=== PATIENT | female | born 1955 | race Caucasian/White ===

== ENCOUNTER → 2017-09-22 11:14 | Outpatient (CLI) | payer OTHER, SELFPAY ==
[2017-09-22 14:28] LABS: Absolute Lymphocyte Count 1.75 X10^3/ul (0.83-4.51); Absolute Neutrophil Count 2.9 X10^3/uL (2.0-7.7); Basophil# 0.02 X10^3/uL; Basophil% 0.4 % (0-1); Eosinophils% 3.8 % (0-5); Hematocrit 43.2 % (37-47); Lymphocyte # 1.75 X10^3/ul (4.0); Lymphocyte % 33.1 % (19-41); Mean Corp Hgb Conc 32.4 g/gl (32-36); Mean Corpuscular Hgb 29.4 pg (27.0-32.0); Mean Corpuscular Volume 90.8 fL (81-99); Monocyte% 7.6 % (0-10); Neutrophil # 2.91 X10^3/uL (2.7-7.7); Neutrophil % 54.9 % (47-70); Platelet Count 286 K/mm3 (150-450); RBC Distribution Width CV 13.4 % (11.6-14.6); RBC Distribution Width SD 44.1 fl (35.1-43.9); Red Blood Count 4.76 M/mm3 (4.2-5.4); White Blood Count 5.3 K/mm3 (4.4-11.0)
[2017-09-22 14:39] LABS: ALB/GLOB Ratio 0.9 RATIO (0.9-2.4); AST(SGOT) 34 U/L (15-37); Alanine Aminotransfer ALT/SGPT 23 U/L (13-56); Albumin, Serum 3.7 g/dL (3.2-5.0); Alkaline Phosphatase 89 U/L (45-117); Anion Gap 8 (5-15); BUN 26 mg/dL (7-18); BUN/Creat Ratio 23.9 RATIO (10-20); Chloride 104 mmol/L (98-107); Cholesterol 196 mg/dL (200); Creatinine, Serum 1.09 mg/dL (0.55-1.02); EST Glomerular Filtration Rate 54 mL/min (>60); Est Glom Filt Rate - Afr Amer 65 mL/min (>60); Globulin 4.3 g/dL (2.2-4.2); Glucose 76 mg/dL (74-106); High Density Lipoprotein 53 mg/dL; POSITIVE COUNT NO; POSITIVE DIFFERENTIAL NO; POSITIVE MORPHOLOGY NO; Sodium Level 140 mmol/L (136-145); Triglycerides 101 mg/dL; Very Low Density Lipoprotein 20 mg/dL (5-40)
[2017-09-22 14:43] LABS: Hemoglobin A1c 5.7 % (4.2-6.3)
[2017-09-22 14:54] LABS: Microalbumin,Random Urine 5.6 mg/L (NO RANGE EST.); Microalbumin:Creatinine Ratio 6.8 mg/g CRE (<30 mg/g CRE)
== END ==
PROVIDERS: Family Provider Family Medicine; PCP Family Medicine; Visit Provider Family Medicine
DX: R73.02 Impaired glucose tolerance (oral) (principal); I10 Essential (primary) hypertension
CPT/HCPCS: 36415; 80053; 80061; 82043; 82570; 83036; 85025

== ENCOUNTER → 2018-01-30 08:42 | Outpatient (CLI) | payer OTHER, SELFPAY ==
--- NOTE | 2018-01-30 08:47 | BI_ITS ---
MAMMOGRAPHY - BILATERAL SCREENING REASON FOR EXAM: Female, 62 years old. Routine annual screening examination. PERTINENT HISTORY: Non-contributory. TECHNIQUE: Digital bilateral breast adriana (3D mammographic acquisition) in the CC and MLO projections. 2-D mediolateral oblique (MLO) and craniocaudad (CC) views of both breasts were obtained. CAD: Full Field Digital Mammography with Computer Added Detection was performed. COMPARISON: Comparison is made with prior study dated January 28, 2017 and December 26, 2015. FINDINGS: Breast Composition: The breasts are almost entirely fatty. There are no dominant masses or suspicious calcifications. No other significant abnormalities are identified. There has been no significant change since the prior study. BI/SCREENING MAMM (CAD), BILAT IMPRESSION: Stable bilateral screening mammogram. Yearly follow-up mammogram recommended. (A) ASSESSMENT CATEGORY: BIRADS Category 1: Negative. A letter regarding these results will be sent to the patient by the facility within 30 days. Approximately 10% of breast cancers are not detected by mammography. A normal mammogram should not delay biopsy of a clinically suspicious abnormality. [id number] Electronically Signed: Adebayo Moon MD at 10:09 EDT Tel [phone], Service support ,
== END ==
PROVIDERS: Family Provider Family Medicine; PCP Family Medicine; Visit Provider Family Medicine
DX: Z12.31 Encounter for screening mammogram for malignant neoplasm of breast (principal)
CPT/HCPCS: 77063; 77067

== ENCOUNTER → 2018-09-06 | Outpatient (CLI) | payer OTHER, SELFPAY ==
[2018-09-06 13:22] LABS: Microalbumin,Random Urine < 5.0 mg/L (NO RANGE EST.)
[2018-09-06 13:33] LABS: ALB/GLOB Ratio 0.9 RATIO (0.9-2.4); AST(SGOT) 39 U/L (15-37); Alanine Aminotransfer ALT/SGPT 30 U/L (13-56); Albumin, Serum 3.8 g/dL (3.2-5.0); Alkaline Phosphatase 89 U/L (45-117); Anion Gap 10 (5-15); BUN 19 mg/dL (7-18); BUN/Creat Ratio 19.8 RATIO (10-20); Calcium,Total 9.6 mg/dL (8.5-10.1); Chloride 103 mmol/L (98-107); Cholesterol 201 mg/dL (200); Creatinine, Serum 0.96 mg/dL (0.55-1.02); EST Glomerular Filtration Rate 62 mL/min (>60); Est Glom Filt Rate - Afr Amer 75 mL/min (>60); Globulin 4.2 g/dL (2.2-4.2); Glucose 77 mg/dL (74-106); High Density Lipoprotein 50 mg/dL; Sodium Level 141 mmol/L (136-145); Triglycerides 126 mg/dL; Very Low Density Lipoprotein 25 mg/dL (5-40)
== END | disposition home or self-care (01) ==
LOC: MFPLAB 09:59
PROVIDERS: Family Provider Family Medicine; PCP Family Medicine; Referring Provider Family Medicine; Visit Provider Family Medicine
DX: I10 Essential (primary) hypertension (principal)
CPT/HCPCS: 36415; 80053; 80061; 82043; 82570

== ENCOUNTER → 2019-01-23 13:57 | Outpatient (CLI) | payer OTHER, SELFPAY ==
[2019-01-26 16:05] LABS: HPV Reflexed? NOT INDICATED
== END ==
PROVIDERS: Family Provider Family Medicine; PCP Family Medicine; Referring Provider Nurse Practitioner Adult Health; Visit Provider Nurse Practitioner Adult Health
DX: Z01.419 Encounter for gynecological examination (general) (routine) without abnormal findings (principal)
CPT/HCPCS: 88175; G0145

== ENCOUNTER → 2019-02-13 08:42 | Outpatient (CLI) | payer OTHER, SELFPAY ==
--- NOTE | 2019-02-13 08:45 | BI_ITS ---
MAMMOGRAPHY - BILATERAL SCREENING REASON FOR EXAM: Female, 63 years old. Routine annual screening examination. PERTINENT HISTORY: Non-contributory. TECHNIQUE: Digital bilateral breast cely (3D mammographic acquisition) in the CC and MLO projections. 2-D mediolateral oblique (MLO) and craniocaudad (CC) views of both breasts were obtained. CAD: Full Field Digital Mammography with Computer Added Detection was performed. COMPARISON: Comparison is made with prior study dated January 30, 2018 and January 28, 2017. FINDINGS: Breast Composition: The breasts are almost entirely fatty. There are no dominant masses or suspicious calcifications. Stable small benign-appearing bilateral axillary lymph nodes. No other significant abnormalities are identified. There has been no significant change since the prior study. BI/SCREEN MAMM (CAD) W/CELY BILAT IMPRESSION: Stable bilateral screening mammogram. Yearly follow-up mammogram recommended. (A) ASSESSMENT CATEGORY: BIRADS Category 2: Benign. A letter regarding these results will be sent to the patient by the facility within 30 days. Approximately 10% of breast cancers are not detected by mammography. A normal mammogram should not delay biopsy of a clinically suspicious abnormality. [id number] Electronically Signed: Adebayo Moon, at 9:43 EST , Service support ,
== END ==
PROVIDERS: Family Provider Family Medicine; PCP Family Medicine; Referring Provider Nurse Practitioner Adult Health; Visit Provider Nurse Practitioner Adult Health
DX: Z12.31 Encounter for screening mammogram for malignant neoplasm of breast (principal)
CPT/HCPCS: 77063; 77067

== ENCOUNTER → 2019-10-01 11:55 | Outpatient (CLI) | payer OTHER, SELFPAY ==
[2019-10-01 16:15] LABS: ALB/GLOB Ratio 0.8 RATIO (0.9-2.4); AST(SGOT) 39 U/L (15-37); Alanine Aminotransfer ALT/SGPT 33 U/L (13-56); Albumin, Serum 3.7 g/dL (3.2-5.0); Alkaline Phosphatase 86 U/L (45-117); Anion Gap 6 (5-15); BUN 20 mg/dL (7-18); BUN/Creat Ratio 22.5 RATIO (10-20); Calcium,Total 9.2 mg/dL (8.5-10.1); Chloride 105 mmol/L (98-107); Creatinine, Serum 0.89 mg/dL (0.55-1.02); EST Glomerular Filtration Rate 68 mL/min (>60); Est Glom Filt Rate - Afr Amer 82 mL/min (>60); Globulin 4.5 g/dL (2.2-4.2); Glucose 118 mg/dL (74-106); Potassium 3.6 mmol/L (3.5-5.1); Protein, Total 8.2 g/dL (6.4-8.2); Sodium Level 140 mmol/L (136-145)
[2019-10-01 16:35] LABS: Microalbumin,Random Urine 5.4 mg/L (NO RANGE EST.)
[2019-10-01 17:14] LABS: Hemoglobin A1c 5.7 % (3.8-5.6)
== END ==
PROVIDERS: PCP Family Medicine; Visit Provider Family Medicine
DX: R73.02 Impaired glucose tolerance (oral) (principal)
CPT/HCPCS: 36415; 80053; 82043; 82570; 83036

== ENCOUNTER → 2019-11-28 11:40 | Outpatient (CLI) | payer MEDICARE, SELFPAY ==
--- NOTE | 2019-11-28 11:43 | RAD_ITS ---
STUDY: X-RAY - LEFT HAND, ATTENTION FOURTH FINGER REASON FOR EXAM: Female, 64 years old. Left 4th digit pain at mcp joint x 1 month TECHNIQUE: 3 view(s) of the finger were obtained. COMPARISON: None. FINDINGS: There is an acute, avulsion fracture of the proximal medial corner of the proximal phalanx of the fourth digit with soft tissue swelling. This is seen on the AP and oblique images. There is a minimal amount of soft tissue swelling. No other demonstrated fracture. Mild PIP and DIP joint arthrosis. RAD/Finger(s) Min 2 Views IMPRESSION: Acute minimally displaced avulsion fracture of the proximal medial corner of the fourth digit of the left hand with soft tissue swelling Degenerative arthrosis Electronically Signed: Ori Metzger MD at 12:00 EDT , Service support ,
== END ==
PROVIDERS: PCP Family Medicine; Referring Provider Nurse Practitioner Adult Health; Visit Provider Nurse Practitioner Adult Health
DX: M79.645 Pain in left finger(s) (principal)
CPT/HCPCS: 73140

== ENCOUNTER → 2020-02-15 08:42 | Outpatient (CLI) | payer MEDICARE, SELFPAY ==
--- NOTE | 2020-02-15 08:43 | BI_ITS ---
MAMMOGRAPHY - BILATERAL SCREENING REASON FOR EXAM: Female, 64 years old. Routine annual screening examination. PERTINENT HISTORY: Non-contributory. TECHNIQUE: Digital bilateral breast cely (3D mammographic acquisition) in the CC and MLO projections. 2-D mediolateral oblique (MLO) and craniocaudad (CC) views of both breasts were obtained. CAD: Full Field Digital Mammography with Computer Added Detection was performed. COMPARISON: Comparison is made with prior study dated 02/13/2019 and 01/30/2018. FINDINGS: Breast Composition: The breasts are almost entirely fatty. There are no dominant masses or suspicious calcifications. No other significant abnormalities are identified. There has been no significant change since the prior study. BI/SCREEN MAMM (CAD) W/CELY BILAT IMPRESSION: Stable bilateral screening mammogram. Yearly follow-up mammogram recommended. (A) ASSESSMENT CATEGORY: BIRADS Category 1: Negative. A letter regarding these results will be sent to the patient by the facility within 30 days. Approximately 10% of breast cancers are not detected by mammography. A normal mammogram should not delay biopsy of a clinically suspicious abnormality. [id number] Electronically Signed: Adebayo Moon, at 10:02 EST , Service support ,
== END ==
PROVIDERS: PCP Family Medicine; Referring Provider Nurse Practitioner Adult Health; Visit Provider Nurse Practitioner Adult Health
DX: Z12.31 Encounter for screening mammogram for malignant neoplasm of breast (principal)
CPT/HCPCS: 77063; 77067

== ENCOUNTER → 2020-09-18 08:40 | Outpatient (CLI) | payer MEDICARE, SELFPAY ==
[2020-09-18 10:26] LABS: Hemoglobin A1c 5.8 % (3.8-5.6)
[2020-09-18 10:29] LABS: Microalbumin,Random Urine 11.4 mg/L (NO RANGE EST.); Microalbumin:Creatinine Ratio 6.9 mg/g CRE (<30 mg/g CRE)
[2020-09-18 10:45] LABS: ALB/GLOB Ratio 0.9 RATIO (0.9-2.4); AST(SGOT) 54 U/L (15-37); Alanine Aminotransfer ALT/SGPT 42 U/L (13-56); Albumin, Serum 3.6 g/dL (3.2-5.0); Alkaline Phosphatase 74 U/L (45-117); Anion Gap 8 (5-15); BUN 26 mg/dL (7-18); BUN/Creat Ratio 28.4 RATIO (10-20); Calcium,Total 8.6 mg/dL (8.5-10.1); Chloride 107 mmol/L (98-107); Cholesterol 196 mg/dL (200); Creatinine, Serum 0.91 mg/dL (0.55-1.02); EST Glomerular Filtration Rate 65 mL/min (>60); Est Glom Filt Rate - Afr Amer 79 mL/min (>60); Globulin 4.1 g/dL (2.2-4.2); Glucose 128 mg/dL (74-106); High Density Lipoprotein 39 mg/dL; Potassium 3.8 mmol/L (3.5-5.1); Protein, Total 7.7 g/dL (6.4-8.2); Sodium Level 139 mmol/L (136-145); Thyroid Stim Hormone (TSH) 7.08 uIU/mL (0.358-3.74); Triglycerides 166 mg/dL; Very Low Density Lipoprotein 33 mg/dL (5-40)
[2020-09-22 10:27] LABS: T4 Total, Thyroxin 8.4 ug/dL (4.8-13.9)
[2020-09-24 08:35] LABS: T4 Free Direct 0.88 ng/dL (0.76-1.46)
== END ==
PROVIDERS: PCP Family Medicine; Referring Provider Family Medicine; Visit Provider Family Medicine
DX: E03.9 Hypothyroidism, unspecified (principal)
CPT/HCPCS: 36415; 80053; 80061; 82043; 82570; 83036; 84436; 84439; 84443

== ENCOUNTER → 2020-09-18 10:17 | Outpatient (CLI) | payer MEDICARE, SELFPAY ==
--- NOTE | 2020-09-18 10:26 | BD_ITS ---
STUDY: DUAL ENERGY X-RAY ABSORPTIOMETRY / DXA REASON FOR EXAM: Female, 65 years old. Z780. The patient is postmenopausal. TECHNIQUE: Bone Mineral Density (BMD) measurements of lumbar spine and bilateral hips were obtained. COMPARISON: Comparison is made with prior study dated 12/30/2015. FINDINGS: Lumbar Spine (L1-L4): g/cm2 (1.234) / T-score (0.5) / Z-score (2.1) Findings are suggestive of normal bone density with a low fracture risk. Left Femur Total: g/cm2 (0.874) / T-score (-1.1) / Z-score (0.2) Left Femoral Neck: g/cm2 (0.809) / T-score (-1.6) / Z-score (-0.1) Right Femur Total: g/cm2 (0.790) / T-score (-1.7) / Z-score (-0.5) Right Femoral Neck: g/cm2 (0.658) / T-score (-2.7) / Z-score (-1.2) The T-Scores on the most recent prior examination were: Lumbar Spine (L1-L4): There has been worsening of bone density since the previous examination. Left Femur Total: which represents a worsening of 12%. Right Femur Total: which represents a worsening of 60.4%. BD/Dexa Bone Density Study IMPRESSION: The patient is considered osteoporotic as outlined below according to World Matthew Organization (WHO) criteria with a high fracture risk. There has been worsening of bone density since the previous examination. Reference Information: The T-score is the number of standard deviations above or below the standard which is normal for young adults at their peak bone mineral density. The World Health Organization (WHO) interprets the T-scores as follows: Above -1 Normal bone density Between -1 and -2.5 Osteopenia Equal to / or below -2.5 Osteoporosis As a practical clinical guideline, osteopenia may be graded as follows: Mild -1 through -1.5 Moderate -1.6 through -2.0 Severe -2.1 through -2.4 The Z-score is the number of standard deviations above or below age-matched controls. A Z-score of less than -1.5 would be considered abnormal. References: 1. NIH Osteoporosis and Related Bone Diseases www osteo.org 2. International Society for Clinical Densitometry www iscd.org 3. National Osteoporosis Foundation www nof.org Electronically Signed: Adebayo Moon MD at 12:21 EDT , Service support ,
== END ==
PROVIDERS: PCP Family Medicine; Referring Provider Family Medicine; Visit Provider Family Medicine
DX: M81.0 Age-related osteoporosis without current pathological fracture (principal); I10 Essential (primary) hypertension; E03.9 Hypothyroidism, unspecified; R73.02 Impaired glucose tolerance (oral); E66.01 Morbid (severe) obesity due to excess calories; Z78.0 Asymptomatic menopausal state
CPT/HCPCS: 36415; 77080; 80053; 80061; 82043; 82570; 83036; 84443

== ENCOUNTER → 2020-11-12 15:41 | Outpatient (CLI) | payer MEDICARE, SELFPAY ==
[2020-11-12 18:08] LABS: Vitamin D,25 Hydroxy 42.2 ng/mL
[2020-11-12 18:14] LABS: Magnesium 1.8 mg/dL (1.6-2.6); T4 Free Direct 1.13 ng/dL (0.76-1.46); Thyroid Stim Hormone (TSH) 1.88 uIU/mL (0.358-3.74)
[2020-11-13 08:04] LABS: PTHIN 43.2 pg/mL (18.4-80.1)
== END ==
PROVIDERS: PCP Family Medicine; Referring Provider Family Medicine; Visit Provider Family Medicine
DX: E03.9 Hypothyroidism, unspecified (principal); M85.80 Other specified disorders of bone density and structure, unspecified site
CPT/HCPCS: 36415; 82306; 83735; 83970; 84439; 84443

== ENCOUNTER → 2021-03-17 11:10 | Outpatient (CLI) | payer MEDICARE, SELFPAY ==
[2021-03-17 13:06] LABS: Hemoglobin A1c 5.7 % (3.8-5.6)
[2021-03-17 13:34] LABS: Thyroid Stim Hormone (TSH) 2.87 uIU/mL (0.358-3.74)
== END ==
PROVIDERS: PCP Family Medicine; Referring Provider Family Medicine; Visit Provider Registered Nurse
DX: E03.9 Hypothyroidism, unspecified (principal); R73.03 Prediabetes
CPT/HCPCS: 36415; 83036; 84443

== ENCOUNTER → 2021-04-09 | Outpatient (CLI) | payer MEDICARE, SELFPAY | END | disposition home or self-care (01) | PROVIDERS: PCP Family Medicine; Visit Provider Family Medicine | DX: U07.1 COVID-19 (principal) | CPT/HCPCS: 87635; U0003; U0005 ==

== ENCOUNTER 2021-05-27 15:07 | Outpatient (CLI) | payer MEDICARE, SELFPAY ==
[2021-06-25 09:03] LABS: HPV Reflexed? YES, CHARGE PATIENT
== END 2021-05-27 23:59 | disposition home or self-care (01) ==
LOC: LABSPEC 15:11
PROVIDERS: Nurse Practitioner Family; PCP Family Medicine; Visit Provider Family Medicine
DX: N95.0 Postmenopausal bleeding (principal)
CPT/HCPCS: 87624; 88175; G0145

== ENCOUNTER 2021-05-29 11:31 | Outpatient (CLI) | payer MEDICARE, SELFPAY ==
--- NOTE | 2021-05-29 11:43 | US_ITS ---
STUDY: ULTRASOUND OF THE FEMALE PELVIS - COMPLETE REASON FOR EXAM: Female, 66 years old. POSTMENOPAUSAL BLEEDING LMP: Patient is postmenopausal. TECHNIQUE: Transabdominal and Transvaginal TECHNICAL QUALITY: Adequate. COMPARISON: None. FINDINGS: The uterus is anteverted and is in a midline position. The uterus measures 8.3 cm x 4.6 cm x 3.5 cm. There is a Nabothian cyst of the cervix. The endometrium is thickened and measures 13.5 mm in thickness, and is hyperechoic. There is no demonstrated endometrial mass. Heterogeneous echotexture of the myometrium although no focal fibroid is seen at this time. I.U.D. - The patient does not have an I.U.D. The right ovary is non-visualized. The left ovary is non-visualized. There is no fluid in the cul-de-sac. The pre void volume of the bladder was 51.5 ml. US/Pelvic (Non ) IMPRESSION: The endometrium is thickened. Heterogeneous echotexture of the uterine myometrium. Electronically Signed: Adebayo Moon MD at 13:41 EST ,
--- NOTE | 2021-05-29 11:43 | US_ITS ---
STUDY: ULTRASOUND OF THE FEMALE PELVIS - COMPLETE REASON FOR EXAM: Female, 66 years old. POSTMENOPAUSAL BLEEDING LMP: Patient is postmenopausal. TECHNIQUE: Transabdominal and Transvaginal TECHNICAL QUALITY: Adequate. COMPARISON: None. FINDINGS: The uterus is anteverted and is in a midline position. The uterus measures 8.3 cm x 4.6 cm x 3.5 cm. There is a Nabothian cyst of the cervix. The endometrium is thickened and measures 13.5 mm in thickness, and is hyperechoic. There is no demonstrated endometrial mass. Heterogeneous echotexture of the myometrium although no focal fibroid is seen at this time. I.U.D. - The patient does not have an I.U.D. The right ovary is non-visualized. The left ovary is non-visualized. There is no fluid in the cul-de-sac. The pre void volume of the bladder was 51.5 ml. US/Transvaginal Non- IMPRESSION: The endometrium is thickened. Heterogeneous echotexture of the uterine myometrium. Electronically Signed: Adebayo Moon MD at 13:41 EST ,
== END 2021-05-29 23:59 | disposition home or self-care (01) ==
LOC: US 11:37
PROVIDERS: PCP Family Medicine; Referring Provider Nurse Practitioner Family; Visit Provider Nurse Practitioner Family
DX: N95.0 Postmenopausal bleeding (principal)
CPT/HCPCS: 76830; 76856

== ENCOUNTER 2021-06-08 14:27 | Outpatient (CLI) | payer MEDICARE, SELFPAY ==
--- NOTE | 2021-06-08 | IMM_PTH ---
PATIENT: LILLY LIRA LOC: [facility] U#:[id number] AGE/SX: 66/F ROOM: RE06/08/[address]: Dr. Alexander Daniel MD : 1955 BED: DIS: 06/08/2021 SPEC #: [id number] RECD: 06/10/21 14:48 STATUS: NESS REQ #: [id number] GREGORY: 06/08/21 00:[address]: Alexander Daniel DEPT: IMMUNOHISTOCHEMISTRY RECD BY: Tonya Lozoya ENTERED: 06/10/21 14:49 SP TYPE: IMMUNO OTHR DR: Dr. Eddy Lira MD Tissues: Endometrium, NOS Procedures: MSH2 (add) MLH-1 (add) MSH6 (add) Anti-PMS2 (add) KI-67 (add) P53 (add) HER-2-MIKHAIL (initial) PHYSICIAN & INSTITUTION [address] [address] SPECIMEN INFORMATION: Tissue Source: Endometrial biopsy Clinical Info: [facility] Specimen Number: [id number] CPT code: 39783, 76892 x6 METHODOLOGY: Deparaffinized sections of prefer/formalin-fixed tissue or PAP/DQ stained slides are incubated with monoclonal/polyclonal antibodies/oligonucleotide probes. Localization is made via biotin free immunoperoxidase method. Appropriate controls are performed and reacted as expected. Results on target cell population are indicated in the following table: RESULTS: ANTIBODY / CLONE RESULT Ki-67 (30-9) positive, moderate P53 (DO-7) positive, rare cells MLH-1 (M1) positive MSH2 (25D12) positive MSH6 (44) positive PMS2 (SRY2061) positive Her-2neu (CB11) negative (0) These tests were developed and their performance characteristics determined by [facility]. They may not have been cleared or approved by the U.S. Food and Drug Administration. The FDA has determined that such clearance or approval is not necessary. The above immunohistochemical/dualISH markers are ordered and reviewed by the Pathologist. INTERPRETATION: Endometrial biopsy: Endometrial adenocarcinoma, endometrioid type. Result of Microsatellite Instability Study: Negative (no loss of mismatch protein; no microsatellite instability detected). SJ:pastor 06/11/2021
--- NOTE | 2021-06-08 | EMB_PTH ---
PATIENT: LILLY LIRA LOC: [facility] U#:[id number] AGE/SX: 66/F ROOM: RE06/08/[address]: Dr. Alexander Daniel MD : 1955 BED: DIS: 06/08/2021 SPEC #: [id number] RECD: 06/08/21 14:50 STATUS: NESS REJenny #: [id number] GREGORY: 06/08/21 00:[address]: Alexander Daniel DEPT: SURGICAL PATHOLOGY RECD BY: Mau Sanches ENTERED: 06/09/21 10:48 SP TYPE: ENDOM BX/C JAVI DR: Dr. Eddy Lira MD Tissues: Endometrium, NOS Procedures: Surgery Specimen Level IV HEADER OPERATION: Endometrial biopsy PRE-OP DIAGNOSIS: PMB TISSUE SUBMITTED: Endometrial biopsy MICROSCOPIC DIAGNOSIS Endometrial biopsy: Well-differentiated endometrial adenocarcinoma, endometrioid type, FIGO I, arising in the background of complex hyperplasia with atypia. SJ:pastor 06/10/2021 COMMENT Immunohistochemistry ([id number]) for microsatellite instability (mismatch repair of protein) will be performed and the results will be reported separately. Case has been reviewed in consultation with Dr. Fitch who concurs with the above diagnosis. IDC:AM MICROSCOPIC DESCRIPTION Slides are reviewed. GROSS DESCRIPTION Received in fixative is one container labeled with the patient's name and designated endometrial biopsy. The specimen consists of multiple fragments of hemorrhagic soft tissue that in aggregate measure 3 x 2.5 x 0.3 cm. The specimen is totally submitted in one cassette. / DENISE:pastor 06/09/2021 TC:0 CPT: 37476
== END 2021-06-08 23:59 | disposition home or self-care (01) ==
LOC: LABSPEC 14:35
PROVIDERS: PCP Family Medicine; Visit Provider Obstetrics & Gynecology
DX: N95.0 Postmenopausal bleeding (principal)
CPT/HCPCS: 88305; 88341; 88342

== ENCOUNTER → 2021-09-08 | Outpatient (CLI) | payer MEDICARE, SELFPAY ==
[2021-09-08 15:26] LABS: ALB/GLOB Ratio 0.9 RATIO (0.9-2.4); AST(SGOT) 42 U/L (15-37); Alanine Aminotransfer ALT/SGPT 33 U/L (13-56); Albumin, Serum 3.5 g/dL (3.2-5.0); Alkaline Phosphatase 57 U/L (45-117); Anion Gap 8 (5-15); BUN 21 mg/dL (7-18); BUN/Creat Ratio 22.1 RATIO (10-20); Calcium,Total 8.8 mg/dL (8.5-10.1); Chloride 107 mmol/L (98-107); Creatinine, Serum 0.95 mg/dL (0.55-1.02); EST Glomerular Filtration Rate 62 mL/min (>60); Est Glom Filt Rate - Afr Amer 75 mL/min (>60); Globulin 3.8 g/dL (2.2-4.2); Glucose 86 mg/dL (74-106); Protein, Total 7.3 g/dL (6.4-8.2); Sodium Level 140 mmol/L (136-145); T4 Free Direct 1.15 ng/dL (0.76-1.46); Thyroid Stim Hormone (TSH) 3.87 uIU/mL (0.358-3.74)
== END | disposition home or self-care (01) ==
LOC: MFPLAB 12:09
PROVIDERS: PCP Family Medicine; Visit Provider Family Medicine
DX: E03.9 Hypothyroidism, unspecified (principal); I10 Essential (primary) hypertension
CPT/HCPCS: 36415; 80053; 84439; 84443

== ENCOUNTER → 2021-10-26 | Outpatient (CLI) | payer MEDICARE, SELFPAY ==
[2021-10-26 16:02] LABS: T4 Free Direct 1.11 ng/dL (0.76-1.46); T4 Total, Thyroxin 10.4 ug/dL (4.8-13.9); Thyroid Stim Hormone (TSH) 1.29 uIU/mL (0.358-3.74)
== END | disposition home or self-care (01) ==
LOC: MFPLAB 11:31
PROVIDERS: PCP Family Medicine; Visit Provider Family Medicine
DX: E03.9 Hypothyroidism, unspecified (principal)
CPT/HCPCS: 36415; 84436; 84439; 84443

== ENCOUNTER → 2021-11-27 | Outpatient (CLI) | payer MEDICARE, SELFPAY ==
--- NOTE | 2021-11-27 15:35 | RAD_ITS ---
STUDY: X-RAY CHEST REASON FOR EXAM: Female, 66 years old. COUGH TECHNIQUE: PA and lateral views of the chest. COMPARISON: None. FINDINGS: The lungs are clear and expanded. There is no demonstrated pleural abnormality. Normal size heart. Normal mediastinum and elizabeth. Normal visualized pulmonary arteries. Normal visualized aortic arch and descending thoracic aorta. Normal visualized thoracic spine. Normal visualized ribs, clavicles, and shoulders. There is no demonstrated abnormality of the visualized soft tissue structures of the upper abdomen. RAD/Chest PA and Lateral IMPRESSION: Normal x-ray examination of the chest. Electronically Signed: Brian Moore MD at 16:50 EDT ,
== END | disposition home or self-care (01) ==
LOC: MTRAD 15:34
PROVIDERS: PCP Family Medicine; Referring Provider Family Medicine; Visit Provider Family Medicine
DX: R05.9 Cough, unspecified (principal)
CPT/HCPCS: 71046

== ENCOUNTER → 2022-06-08 | Outpatient (CLI) | payer MEDICARE, SELFPAY ==
--- NOTE | 2022-06-08 14:58 | BI_ITS ---
MAMMOGRAPHY - BILATERAL SCREENING REASON FOR EXAM: Female, 67 years old. Routine annual screening examination. PERTINENT HISTORY: Non-contributory. TECHNIQUE: Digital bilateral breast cely (3D mammographic acquisition) in the CC and MLO projections. 2-D mediolateral oblique (MLO) and craniocaudad (CC) views of both breasts were obtained. CAD: Full Field Digital Mammography with Computer Added Detection was performed. COMPARISON: Comparison is made with prior study dated 02/15/2020 and 02/13/2019. FINDINGS: Breast Composition: The breasts are almost entirely fatty. There are no dominant masses or suspicious calcifications. No other significant abnormalities are identified. There has been no significant change since the prior study. BI/SCRN MAMM (CAD)W/CELY BILAT IMPRESSION: Stable bilateral screening mammogram. Yearly follow-up mammogram recommended. (A) ASSESSMENT CATEGORY: BIRADS Category 1: Negative. A letter regarding these results will be sent to the patient by the facility within 30 days. Approximately 10% of breast cancers are not detected by mammography. A normal mammogram should not delay biopsy of a clinically suspicious abnormality. [id number] Electronically Signed: Adebayo Moon MD at 15:41 EST ,
== END | disposition home or self-care (01) ==
LOC: OPBI 14:55
PROVIDERS: PCP Family Medicine; Visit Provider Obstetrics & Gynecology
DX: Z12.31 Encounter for screening mammogram for malignant neoplasm of breast (principal)
CPT/HCPCS: 77063; 77067

== ENCOUNTER → 2022-09-07 | Outpatient (CLI) | payer MEDICARE, SELFPAY ==
[2022-09-07 18:00] LABS: Vitamin D,25 Hydroxy 42.6 ng/mL
[2022-09-07 18:20] LABS: ALB/GLOB Ratio 0.7 RATIO (0.9-2.4); AST(SGOT) 39 U/L (15-37); Alanine Aminotransfer ALT/SGPT 30 U/L (13-56); Albumin, Serum 3.5 g/dL (3.2-5.0); Alkaline Phosphatase 65 U/L (45-117); Anion Gap 8 (5-15); BUN 20 mg/dL (7-18); BUN/Creat Ratio 20.3 RATIO (10-20); Calcium,Total 9.5 mg/dL (8.5-10.1); Chloride 104 mmol/L (98-107); Creatinine, Serum 0.98 mg/dL (0.55-1.02); EST Glomerular Filtration Rate 60 mL/min (>60); Est Glom Filt Rate - Afr Amer 72 mL/min (>60); Globulin 4.7 g/dL (2.2-4.2); Glucose 89 mg/dL (74-106); Potassium 3.6 mmol/L (3.5-5.1); Protein, Total 8.2 g/dL (6.4-8.2); Sodium Level 140 mmol/L (136-145); T4 Free Direct 1.02 ng/dL (0.76-1.46); Thyroid Stim Hormone (TSH) 4.57 uIU/mL (0.358-3.74)
[2022-09-07 18:21] LABS: Hemoglobin A1c 5.8 % (3.8-5.6)
[2022-09-07 19:35] LABS: Microalbumin,Random Urine 8.2 mg/L (NO RANGE EST.); Microalbumin:Creatinine Ratio 9.3 mg/g CRE (<30 mg/g CRE)
== END | disposition home or self-care (01) ==
LOC: MFPLAB 16:02
PROVIDERS: PCP Family Medicine; Visit Provider Family Medicine
DX: R73.03 Prediabetes (principal); E03.9 Hypothyroidism, unspecified; M81.0 Age-related osteoporosis without current pathological fracture; I10 Essential (primary) hypertension
CPT/HCPCS: 36415; 80053; 82043; 82306; 82570; 83036; 84439; 84443; 84481

== ENCOUNTER → 2023-03-07 | Outpatient (CLI) | payer MEDICARE, SELFPAY ==
[2023-03-07 18:00] LABS: Vitamin D,25 Hydroxy 49.8 ng/mL
[2023-03-07 18:01] LABS: Hemoglobin A1c 5.6 % (3.8-5.6)
[2023-03-07 18:11] LABS: ALB/GLOB Ratio 0.8 RATIO (0.9-2.4); AST(SGOT) 36 U/L (15-37); Alanine Aminotransfer ALT/SGPT 27 U/L (13-56); Albumin, Serum 3.6 g/dL (3.2-5.0); Alkaline Phosphatase 65 U/L (45-117); Anion Gap 9 (5-15); BUN 20 mg/dL (7-18); BUN/Creat Ratio 24.1 RATIO (10-20); Calcium,Total 8.8 mg/dL (8.5-10.1); Chloride 104 mmol/L (98-107); Creatinine, Serum 0.83 mg/dL (0.55-1.02); EST Glomerular Filtration Rate 73 mL/min (>60); Est Glom Filt Rate - Afr Amer 88 mL/min (>60); Free T3 2.5 pg/mL (2.18-3.98); Globulin 4.6 g/dL (2.2-4.2); Glucose 88 mg/dL (74-106); Potassium 3.4 mmol/L (3.5-5.1); Protein, Total 8.2 g/dL (6.4-8.2); Sodium Level 139 mmol/L (136-145); T4 Free Direct 1.38 ng/dL (0.76-1.46); Thyroid Stim Hormone (TSH) 0.77 uIU/mL (0.358-3.74)
== END | disposition home or self-care (01) ==
PROVIDERS: Nurse Practitioner Family; PCP Family Medicine; Visit Provider Family Medicine
DX: E03.9 Hypothyroidism, unspecified (principal); M81.0 Age-related osteoporosis without current pathological fracture
CPT/HCPCS: 36415; 80053; 82306; 83036; 84439; 84443; 84481

== ENCOUNTER → 2023-09-13 | Outpatient (CLI) | payer MEDICARE, SELFPAY ==
[2023-09-13 18:24] LABS: AST(SGOT) 35 U/L (15-37); Alanine Aminotransfer ALT/SGPT 24 U/L (13-56); Albumin, Serum 3.9 g/dL (3.2-5.0); Alkaline Phosphatase 63 U/L (45-117); Anion Gap 6 (5-15); BUN 26 mg/dL (7-18); Calcium,Total 9.3 mg/dL (8.5-10.1); Chloride 108 mmol/L (98-107); Creatinine, Serum 1.13 mg/dL (0.55-1.02); EST Glomerular Filtration Rate 51 mL/min (>60); Est Glom Filt Rate - Afr Amer 61 mL/min (>60); Glucose 120 mg/dL (74-106); Protein, Total 7.9 g/dL (6.4-8.2); Sodium Level 140 mmol/L (136-145); T4 Free Direct 1.25 ng/dL (0.76-1.46); Thyroid Stim Hormone (TSH) 1.26 uIU/mL (0.358-3.74)
[2023-09-16 18:43] LABS: Microalbumin,Random Urine 11.2 mg/L (NO RANGE EST.)
== END | disposition home or self-care (01) ==
LOC: MFPLAB 14:55
PROVIDERS: PCP Family Medicine; Visit Provider Family Medicine
DX: E03.9 Hypothyroidism, unspecified (principal); I10 Essential (primary) hypertension
CPT/HCPCS: 36415; 80053; 82043; 82570; 84439; 84443

== ENCOUNTER → 2023-10-11 | Outpatient (CLI) | payer MEDICARE, SELFPAY ==
--- NOTE | 2023-10-11 15:57 | BD_ITS ---
STUDY: DUAL ENERGY X-RAY ABSORPTIOMETRY / DXA REASON FOR EXAM: Female, 68 years old. M810 TECHNIQUE: Bone Mineral Density (BMD) measurements of lumbar spine and bilateral hips were obtained. COMPARISON: Comparison is made with prior study dated September 18, 2020. FINDINGS: Lumbar Spine (L1-L4): g/cm2 (1.136) / T-score (0.5) / Z-score (2.6) Findings are suggestive of normal bone density with a low fracture risk. Left Femur Total: g/cm2 (0.866) / T-score (-0.6) / Z-score (0.8) Left Femoral Neck: g/cm2 (0.734) / T-score (-1.0) / Z-score (0.7) Right Femur Total: g/cm2 (0.838) / T-score (-0.8) / Z-score (0.6) Right Femoral Neck: g/cm2 (0.524) / T-score (-2.9) / Z-score (minus 1.) The T-Scores on the most recent prior examination were: Lumbar Spine (L1-L4): There has been improvement of bone density since the previous examination. Left Femur Total: which represents an improvement of 6.7%. Right Femur Total: which represents an improvement of 14.8%. BD/Dexa Bone Density Study IMPRESSION: The patient is considered osteoporotic as outlined below according to World Matthew Organization (WHO) criteria with a high fracture risk. There has been improvement of bone density since the previous examination. Reference Information: The T-score is the number of standard deviations above or below the standard which is normal for young adults at their peak bone mineral density. The World Health Organization (WHO) interprets the T-scores as follows: Above -1 Normal bone density Between -1 and -2.5 Osteopenia Equal to / or below -2.5 Osteoporosis As a practical clinical guideline, osteopenia may be graded as follows: Mild -1 through -1.5 Moderate -1.6 through -2.0 Severe -2.1 through -2.4 The Z-score is the number of standard deviations above or below age-matched controls. A Z-score of less than -1.5 would be considered abnormal. References: 1. NIH Osteoporosis and Related Bone Diseases www osteo.org 2. International Society for Clinical Densitometry www iscd.org 3. National Osteoporosis Foundation www nof.org Electronically Signed: Adebayo Moon MD at 10:44 EDT ,
== END | disposition home or self-care (01) ==
LOC: OPBD 15:55
PROVIDERS: PCP Family Medicine; Referring Provider Family Medicine; Visit Provider Family Medicine
DX: M81.0 Age-related osteoporosis without current pathological fracture (principal)
CPT/HCPCS: 77080

== ENCOUNTER → 2023-10-12 | Outpatient (CLI) | payer MEDICARE, SELFPAY ==
[2023-10-12 13:16] LABS: Mucous, Urine 0 SEEN /hpf (<or=2+); Red Blood Cells-Urine 0 SEEN /hpf (0-5); White Blood Cells 0 SEEN /hpf (0-5)
[2023-10-12 15:30] LABS: Anion Gap 7 (5-15); BUN 24 mg/dL (7-18); BUN/Creat Ratio 27.1 RATIO (10-20); Calcium,Total 9.3 mg/dL (8.5-10.1); Chloride 106 mmol/L (98-107); Creatinine, Serum 0.89 mg/dL (0.55-1.02); EST Glomerular Filtration Rate 67 mL/min (>60); Est Glom Filt Rate - Afr Amer 81 mL/min (>60); Glucose 80 mg/dL (74-106); Potassium 3.9 mmol/L (3.5-5.1); Sodium Level 138 mmol/L (136-145)
[2023-10-12 15:34] LABS: Color, Urine Straw (Yellow); Glucose, Dipstick Normal (Normal); Ketone-Dipstick Negative (Negative); Leukocyte Esterase-Dipstick Negative /ul (Negative); Nitrite-Dipstick Negative (Negative); Occult Blood-Urine Negative /ul (Negative); Protein-Dipstick Negative (Negative); Urine Bilirubin Dipstick Negative (Negative); Urine Clarity Clear (Clear); Urine Urobilinogen Normal (Normal)
[2023-10-12 16:02] LABS: Microalbumin,Random Urine < 5.0 mg/L (NO RANGE EST.)
[2023-10-12 16:12] LABS: Squamous Epithelial Cells - UA 0-5 SEEN /hpf (5-10)
[2023-10-12 16:13] LABS: Bacteria RARE /hpf (None Seen)
== END | disposition home or self-care (01) ==
PROVIDERS: PCP Family Medicine; Referring Provider Family Medicine; Visit Provider Family Medicine
DX: R35.0 Frequency of micturition (principal); R73.03 Prediabetes
CPT/HCPCS: 36415; 80048; 81001; 82043; 82570

== ENCOUNTER → 2024-02-28 | Outpatient (CLI) | payer MEDICARE, SELFPAY | END | disposition home or self-care (01) | PROVIDERS: PCP Family Medicine; Referring Provider Family Medicine; Visit Provider Family Medicine | DX: R92.8 Other abnormal and inconclusive findings on diagnostic imaging of breast (principal) | CPT/HCPCS: 76642; 77062; 77066; G0279 ==

== ENCOUNTER → 2024-03-16 | Outpatient (CLI) | payer MEDICARE, SELFPAY ==
[2024-03-16 09:54] LABS: Absolute Lymphocyte Count 1.11 X10^3/uL (0.83-4.51); Absolute Neutrophil Count 2.8 X10^3/uL (2.0-7.7); Basophil# 0.02 X10^3/uL; Basophil% 0.4 % (0-1); Eosinophil# 0.22 X10^3/uL; Eosinophils% 4.6 % (0-5); Hematocrit 42.1 % (37-47); Hemoglobin 13.5 g/dL (12.0-15.0); Lymphocyte # 1.11 X10^3/ul (0.83-4.51); Lymphocyte % 23.4 % (19-41); Mean Corp Hgb Conc 32.1 g/dL (32-36); Mean Corpuscular Hgb 28.7 pg (27.0-32.0); Mean Corpuscular Volume 89.4 fL (81-99); Mean Platelet Vol. 10.4 fl (6.2-12.0); Monocyte% 12.6 % (0-10); NRBC Flagged by Analyzer 0 % (0-5); Neutrophil # 2.76 X10^3/uL (2.7-7.7); Neutrophil % 58.2 % (47-70); Platelet Count 242 K/mm3 (150-450); RBC Distribution Width CV 12.9 % (11.6-14.6); RBC Distribution Width SD 42.4 fl (35.1-43.9); Red Blood Count 4.71 M/mm3 (4.2-5.4); White Blood Count 4.8 K/mm3 (4.4-11.0)
[2024-03-16 10:27] LABS: ALB/GLOB Ratio 0.9 RATIO (0.9-2.4); AST(SGOT) 42 U/L (15-37); Alanine Aminotransfer ALT/SGPT 29 U/L (13-56); Albumin, Serum 3.4 g/dL (3.2-5.0); Alkaline Phosphatase 60 U/L (45-117); Anion Gap 7 (5-15); BUN 22 mg/dL (7-18); BUN/Creat Ratio 21.4 RATIO (10-20); Chloride 109 mmol/L (98-107); Creatinine, Serum 1.03 mg/dL (0.55-1.02); EST Glomerular Filtration Rate 56 mL/min (>60); Est Glom Filt Rate - Afr Amer 68 mL/min (>60); Globulin 3.8 g/dL (2.2-4.2); Glucose 113 mg/dL (74-106); Potassium 3.8 mmol/L (3.5-5.1); Protein, Total 7.2 g/dL (6.4-8.2); Sodium Level 141 mmol/L (136-145); Thyroid Stim Hormone (TSH) 0.709 uIU/mL (0.358-3.740)
[2024-03-16 12:26] LABS: Hemoglobin A1c 5.9 % (3.8-5.6)
== END | disposition home or self-care (01) ==
LOC: MFPLAB 09:15
PROVIDERS: PCP Family Medicine; Referring Provider Family Medicine; Visit Provider Family Medicine
DX: E03.9 Hypothyroidism, unspecified (principal); D86.3 Sarcoidosis of skin; R73.03 Prediabetes; I10 Essential (primary) hypertension
CPT/HCPCS: 36415; 80053; 83036; 84443; 85025

== ENCOUNTER → 2024-07-09 | Outpatient (CLI) | payer MEDICARE, SELFPAY ==
--- NOTE | 2024-07-09 15:20 | US_ITS ---
PROCEDURE: EXT NON VASC LIMITED/SOFT TISS 07/09/2024 REASON FOR EXAM: MASS LEFT UPPER ANTERIOR THIGH TECHNIQUE: Ultrasound targeted to the palpable abnormality at the upper thigh.. COMPARISON: None FINDINGS: The palpable lump corresponds to a 1.3 cm x 1.1 cm x 0.5 cm slightly echogenic nodule just deep to the subcutaneous tissues. Minimal vascularity is seen. This most likely represents a lipoma. US/Ext Non Vasc Limited/Soft Tiss IMPRESSION: The palpable abnormality most likely corresponds to a 1.3 cm x 1.1 cm x 0.5 cm lipoma. Clinical correlation recommended. Reading Location: [place] [address]
--- NOTE | 2024-07-09 15:20 | US_ITS ---
PROCEDURE: EXT NON VASC LIMITED/SOFT TISS 07/09/2024 REASON FOR EXAM: MASS LEFT UPPER LEG ABOVE MEDIAL KNEE TECHNIQUE: Ultrasound targeted to the palpable abnormality at the palpable area just proximal to the knee joint.. COMPARISON: None FINDINGS: The palpable lump corresponds to a 1.2 cm x 0.9 cm x 0.5 cm focal area of increased echotexture suggestive of possible lipoma. This is just deep to the skin surface. US/Ext Non Vasc Limited/Soft Tiss IMPRESSION: The palpable lump corresponds to a 1.2 cm x 0.9 cm x 0.5 cm lipoma. Reading Location: [place] [address]
== END | disposition home or self-care (01) ==
PROVIDERS: PCP Family Medicine; Referring Provider Plastic Surgery; Visit Provider Plastic Surgery
DX: R22.42 Localized swelling, mass and lump, left lower limb (principal)
CPT/HCPCS: 76882

== ENCOUNTER 2024-07-26 13:53 | Day surgery (SDC) | payer MEDICARE, SELFPAY ==
[2024-07-26 14:19] VITALS: BP 161/73; PULSE 64; RESP 18; TEMP 36.1; O2SAT 100
--- NOTE | 2024-07-26 14:50 | LES_PTH ---
PATIENT: LILLY LIRA LOC: [facility] U#:[id number] AGE/SX: 69/F ROOM: RE07/26/[address]: Dr. Ani Bernal MD : 1955 BED: DIS: 07/26/2024 SPEC #: [id number] RECD: 07/27/24 11:13 STATUS: NESS REJenny #: [id number] GREGORY: 07/26/24 14:[address]: Ani Bernal DEPT: SURGICAL PATHOLOGY RECD BY: Eder Arroyo ENTERED: 07/27/24 11:14 SP TYPE: Lesion OTHR DR: Dr. 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 Left knee, subcutaneous mass, excision: * Angiolipoma. B. Left thigh, connective tissue neoplasm, excision: * Lipoma. MICROSCOPIC DESCRIPTION Slides are reviewed. GROSS DESCRIPTION A. Received in formalin in a container labeled with the patient's name, date of , and left knee subcutaneous neoplasm are 2 unoriented and encapsulated portions of kamara-yellow adipose tissue measuring 0.7 x 0.3 x 0.3 cm (inked green) and 1.0 x 1.0 x 0.5 cm (inked black). Sectioning of each reveals uniform surfaces with no hemorrhage or necrosis. The majority is submitted in A1. B. Received in formalin in a container labeled with the patient's name, date of , and left thigh connective tissue neoplasm, uncertain behavior is a 1.5 x 1.0 x 0.5 cm kamara-yellow and encapsulated portion of adipose tissue. The outer surface is inked black and serial sections reveal uniform surfaces with no hemorrhage or necrosis. The majority is submitted in B1. [facility] 07/27/2024 CPT:88957w4
--- NOTE | 2024-07-26 14:54 | PCM.HP.BLA ---
History and Physical Date of Admission: 07/26/24 The patient presents with a subcutaneous mass of the left knee and thigh area. She presents for excision of the masses and submission for pathologic evaluation. An informed consent is obtained. She is marked in the preop holding area. There are no changes to the H&P dated. Assessment & Plan Assessment/Plan (1) Neoplasm of uncertain behavior of connective and other soft tissue: PLAN: Plan For excision subcutaneous mass of left knee and left thigh.
[2024-07-26 15:18] VITALS: BP 159/70; BP 163/69; O2SAT 100; O2SAT 96; O2SAT 97; O2SAT 98; O2SAT 99
[2024-07-26] MEDS: Lidocaine 1% /Epi 1:100 9 ML, Sodium Bicarbonate 1 MEQ OPERA.SITE (15:36)
--- NOTE | 2024-07-26 16:19 | DCINST_ITS ---
Discharge Instructions Dressing / Incision Additional Dressing/Incision Instructions:: You may leave the dressings in place on your leg and thigh until seen in the office. If they come off, apply antibiotic ointment and Band-Aids and change daily. Take the oral antibiotic (Keflex) 2 times a day until finished. Follow Up Care Please Follow Up With: Ani Bernal MD When: In 1 to 2 weeks. Test Results: Test results from this visit will be discussed in further detail at your follow- up appointment, if applicable. Discharge Plan Admission Attending Provider: Ani Bernal Primary Care Provider: Eddy Lira Instructions Print Language: [place] Discharge Orders/Prescriptions Prescriptions: New cephalexin 500 mg capsule 500 mg PO BID 5 Days Qty: 10 0RF No Action naproxen 500 mg tablet 500 mg PO QDAY PRN (Reason: muscle pain) levothyroxine 100 mcg tablet 100 mcg PO QDAY ibandronate 150 mg tablet 150 mg PO QMONTH metoprolol succinate 50 mg tablet extended release 24 hr 50 mg PO QDAY ammonium lactate 12 % cream 1 applic topical BID oxybutynin chloride [Ditropan XL] 15 MG tablet extended release 24hr 15 mg PO DAILY lisinopril-hydrochlorothiazide [Zestoretic] 1 EACH tablet 1 ea PO BID metoprolol tartrate [Lopressor] 100 MG tablet 100 mg PO DAILY calcium carbonate 600 MG tablet 600 mg PO DAILY Centrum Silver Women 1 EACH tablet 1 ea PO DAILY aspirin 81 MG tablet,chewable 81 mg PO DAILY@0800 Referrals / Follow Up: Eddy Lira MD [Primary Care Provider] - Disposition Disposition (needs filled in before D/C Order can be placed): Home, Self Care
--- NOTE | 2024-07-26 16:23 | OP.PCM_ITS ---
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 Post-Operative Diagnosis: Same Surgery/Procedure Performed: Excision subcutaneous neoplasm left knee (2.5 cm); Excision subcutaneous neoplasm left thigh (2.5 cm) business intelligence etl developer: Yes Talk Show Host: Ariel Fowler Tasks completed by first line supervisor: Retracting Type of Anesthesia: Local RN Documented Start/Stop Times: Operation Date: 07/26/24 14:50 Case Time Into Pre-Op 07/26/24 14:00 Into Room 07/26/24 15:15 Procedure Start 07/26/24 15:36 Procedure End 07/26/24 16:18 Anesthesia End 07/26/24 16:19 Out of Room 07/26/24 16:19 Procedure Start Time: 15:36 Procedure Stop Time: 16:18 Select all DRAINS/GRAFTS/IMPLANTS that apply: None Estimated Blood Loss: Minimal Specimen collected: Yes Description of specimen(s) removed: Subcutaneous neoplasms left knee and left thigh Description of surgery: The patient presents with tender subcutaneous masses of the left knee and left thigh. If she presents for excision of the masses with submission for pathologic evaluation. An informed consent is obtained. The patient is brought to the operating room and placed on the operating room table in the supine position. The left knee and thigh are prepped and draped in the usual sterile fashion. 1% Xylocaine with epinephrine buffered with sodium bicarb is used for local anesthetic. Following this, an incision is made over top of the mass and carried down through the subcutaneous tissue until the mass is encountered. The mass is then carefully enucleated from its bed and passed off the operative field to be sent to pathology. Hemostasis is controlled with cautery. The wound is then closed in layers using Vicryl suture in the subcutaneous tissue and dermis. Skin edges are approximated with a running subcuticular Vicryl suture. The identical procedure was performed on both sides. Dermabond Steri-Strips and a Tegaderm are placed on both areas. She tolerated the procedure well was taken to the recovery area in an awake and stable condition. Needle and sponge counts are correct. Surgical Findings: As above Complications Complications: No Admit VTE Documentation VTE Mechan Device Prophylaxis: None Reason prophylaxis not ordered: Treatment Not Indicated
[2024-07-26 16:30] VITALS: BP 151/61; BP 161/73; PULSE 63; RESP 16; TEMP 36.1; O2SAT 97
== END 2024-07-26 16:46 | disposition home or self-care (01) ==
LOC: SDC 13:53 → AC 13:55
PROVIDERS: PCP Family Medicine; Referring Provider Plastic Surgery; Visit Provider Plastic Surgery
PROC: (CPT 27327; principal; 2024-07-26 14:35)
DX: D17.24 Benign lipomatous neoplasm of skin and subcutaneous tissue of left leg (principal); I10 Essential (primary) hypertension; E07.9 Disorder of thyroid, unspecified; M81.0 Age-related osteoporosis without current pathological fracture; Z79.82 Long term (current) use of aspirin; Z79.890 Hormone replacement therapy; Z79.899 Other long term (current) drug therapy
CPT/HCPCS: 27327 ×2; 88304

== ENCOUNTER → 2024-08-13 | Outpatient (CLI) | payer MEDICARE, SELFPAY | END | disposition home or self-care (01) | LOC: LABSPEC 07:47 | PROVIDERS: PCP Family Medicine; Visit Provider Nurse Practitioner Family | DX: S31.109A Unspecified open wound of abdominal wall, unspecified quadrant without penetration into peritoneal cavity, initial encounter (principal); X58.XXXA Exposure to other specified factors, initial encounter | CPT/HCPCS: 87070; 87075; 87205 ==

== ENCOUNTER → 2024-09-12 | Outpatient (CLI) | payer MEDICARE, SELFPAY ==
[2024-09-12 18:03] LABS: Absolute Lymphocyte Count 1.65 X10^3/uL (0.83-4.51); Basophil# 0.04 X10^3/uL; Basophil% 0.6 % (0-1); Eosinophil# 0.26 X10^3/uL; Eosinophils% 3.9 % (0-5); Hematocrit 40.7 % (37-47); Hemoglobin 13.3 g/dL (12.0-15.0); Lymphocyte # 1.65 X10^3/ul (0.83-4.51); Lymphocyte % 24.5 % (19-41); Mean Corp Hgb Conc 32.7 g/dL (32-36); Mean Corpuscular Hgb 28.1 pg (27.0-32.0); Mean Platelet Vol. 11.7 fl (6.2-12.0); Monocyte# 0.74 X10^3/uL; NRBC Flagged by Analyzer 0 % (0-5); Neutrophil # 4.02 X10^3/uL (2.7-7.7); Neutrophil % 59.6 % (47-70); Platelet Count 245 K/mm3 (150-450); RBC Distribution Width CV 13.7 % (11.6-14.6); Red Blood Count 4.73 M/mm3 (4.2-5.4); White Blood Count 6.7 K/mm3 (4.4-11.0)
[2024-09-12 18:37] LABS: ALB/GLOB Ratio 1.1 RATIO (0.9-2.4); AST(SGOT) 47 U/L (<=31); Alanine Aminotransfer ALT/SGPT 23 U/L (<=34); Albumin, Serum 3.9 g/dL (3.4-4.8); Alkaline Phosphatase 73 U/L (35-104); Anion Gap 15 (5-15); BUN 30 mg/dL (4-19); BUN/Creat Ratio 29.6 RATIO (10-20); Calcium,Total 9.6 mg/dL (7.6-11.0); Carbon Dioxide 20.4 mmol/L (21.0-32.0); Chloride 103 mmol/L (98-108); Cholesterol 189 mg/dL (<=200); Creatinine, Serum 1.02 mg/dL (0.70-1.20); EST Glomerular Filtration Rate 59 (>60); Globulin 3.5 g/dL (2.2-4.2); Glucose 82 mg/dL (70-99); High Density Lipoprotein 42 mg/dL; Low Density Lipoprotein Calc. 119 mg/dL; Potassium 3.9 mmol/L (3.3-5.1); Protein, Total 7.4 g/dL (5.9-8.4); Sodium Level 139 mmol/L (133-145); Total Bilirubin 0.81 mg/dL (0.00-1.30); Triglycerides 140 mg/dL; Very Low Density Lipoprotein 28 mg/dL (5-40); cholesterol:hdl ratio screen 4.51
[2024-09-12 19:04] LABS: Hemoglobin A1c 6.3 % (<=5.6)
== END | disposition home or self-care (01) ==
LOC: MFPLAB 14:05
PROVIDERS: PCP Family Medicine; Referring Provider Family Medicine; Visit Provider Family Medicine
DX: D86.3 Sarcoidosis of skin (principal); R73.03 Prediabetes
CPT/HCPCS: 36415; 80053; 80061; 83036; 84443; 85025

== ENCOUNTER 2024-10-16 09:55 | Emergency (ER) | payer MEDICARE, SELFPAY ==
[2024-10-16] VITALS (7 sets, daily range): BP systolic 117–148; BP diastolic 60–78; PULSE 20–89; RESP 14–20; TEMP 36.4–36.6; O2SAT 97–100; BMI 45.1
--- NOTE | 2024-10-16 10:05 | EKG12_ITS ---
Test Reason : CP Blood Pressure : */* mmHG Vent. Rate : 92 BPM Atrial Rate : 92 BPM P-R Int : 158 ms QRS Dur : 86 ms QT Int : 364 ms P-R-T Axes : 49 -15 52 degrees QTcB Int : 450 ms Normal sinus rhythm Nonspecific T wave abnormality Abnormal ECG Confirmed by ANA LILIA VELAZQUEZ, JULIO CÉSAR ([id number]), news video editor FRANDY ELLIS ([id number]) on 10/18/2024 6:34:53 AM Referred By: Confirmed By: JULIO CÉSAR SUNG MD
--- NOTE | 2024-10-16 10:05 | RAD_ITS ---
PROCEDURE: CHEST PA AND LATERAL 10/16/2024 REASON FOR EXAM: CHEST PAIN TECHNIQUE: CHEST PA AND LATERAL COMPARISON: AP chest of 11/27/2021. RAD/Chest PA and Lateral IMPRESSION: No evidence of pulmonary edema. Lungs appear clear of acute disease. No pleural effusion or pneumothorax is seen. The cardiomediastinal silhouette is stable, without evidence of cardiomegaly. Mild thoracic spine degenerative changes are seen, along with extensive DISH. Bilateral acromioclavicular joint degenerative changes are noted, [id number]-left. No acute osseous change is seen. Reading Location: [address]
[2024-10-16 10:39] LABS: Hematocrit 42.3 % (37-47); Hemoglobin 13.6 g/dL (12.0-15.0); Immature Granulocytes Count 0.390 X10^3/uL (0.0-0.0); Mean Corp Hgb Conc 32.2 g/dL (32-36); Mean Corpuscular Volume 87.0 fL (81-99); Mean Platelet Vol. 9.9 fl (6.2-12.0); NRBC Flagged by Analyzer 0 % (0-5); Platelet Count 355 K/mm3 (150-450); RBC Distribution Width CV 14.5 % (11.6-14.6); RBC Distribution Width SD 47.1 fl (35.1-43.9); Red Blood Count 4.86 M/mm3 (4.2-5.4); White Blood Count 11.0 K/mm3 (4.4-11.0)
[2024-10-16 11:12] LABS: Anion Gap 11 (5-15); BUN 26 mg/dL (4-19); BUN/Creat Ratio 27.8 RATIO (10-20); Calcium,Total 9.3 mg/dL (7.6-11.0); Carbon Dioxide 24.5 mmol/L (21.0-32.0); Chloride 104 mmol/L (98-108); Estimated Creatinine Clearance 67.22 ml/min (50-250); Glucose 149 mg/dL (70-99); Potassium 3.9 mmol/L (3.3-5.1)
[2024-10-16 11:13] LABS: Troponin T High Sensitivity 24 ng/L (<=14)
--- NOTE | 2024-10-16 11:17 | ED.VIS.CHEST ---
HPI History of Present Illness Chief Complaint: Chest Pain Informant: patient Narrative Narrative: Patient is a 69-year-old female with history of angiolipoma, hypothyroidism, hypertension and skin sarcoidosis presenting with chest pain. Patient states last night she had tightness in the center of her chest. She states it was pretty much gone when she woke up and then is completely resolved at this point. She states she almost came in last night but did not. She states is in the middle of her chest. She denies any radiation. She has associated nausea. She does have some chronic shoulder pain but does not think that this is related to her chest pain today. The shoulder pain is worse with movement of her arm. She states that she felt little short of breath when she was walking up the hill this morning but she currently denies any shortness of breath. She denies any palpitations. She has a swelling of her legs. She denies any fever or chills. She has a recent cough. She did develop a rash on her trunk that spread to her extremities about a week ago. She is currently on prednisone taper for this. She was supposed to see [facility] dermatology today but canceled the appointment because of her chest pain. She does note that this morning she took 2 bites of an [place] muffin and just did not feel like eating anymore/did not taste good so she stopped eating. She denies any change in her symptoms with eating. No other complaints or concerns at this time. Patient states the rash is nonpainful. She did not even notice it until she had a routine doctor appointment and they noticed it. She denies any associated itching. She denies any sores in her mouth. Denies any painful urination. She states she does not go outside and denies any tick bites. [facility] Medical History MRSA (methicillin resistant staph aureus) culture positive Osteoporosis Thyroid disease Hypertension Wrist fracture, left Home Medications ?Medication ?Instructions ?Recorded ?Last Taken ?Type calcium carbonate 600 mg PO DAILY 12/23/14 10/15/24 History lisinopril 20 1 ea PO BID 12/23/14 10/16/24 History mg-hydrochlorothiazide 12.5 mg tablet (Zestoretic) [id number]-qbzm-wifo 8 mg-folic 400 1 ea PO DAILY 12/23/14 10/16/24 History mcg-K 50 mcg-lutein 300 mcg tablet (Centrum Silver Women) oxybutynin chloride 15 mg 15 mg PO DAILY 12/23/14 10/16/24 History tablet,extended release 24 hr (Ditropan XL) aspirin 81 mg chewable tablet 81 mg PO DAILY@0800 12/24/14 10/15/24 History ibandronate 150 mg tablet 150 mg PO QMONTH 06/26/24 09/27/24 History levothyroxine 100 mcg tablet 100 mcg PO QDAY 06/26/24 10/15/24 History metoprolol succinate 50 mg 50 mg PO QDAY 06/26/24 10/16/24 History tablet,extended release 24 hr naproxen 500 mg tablet 500 mg PO QDAY PRN muscle pain 06/26/24 10/15/24 History mupirocin 2 % topical ointment 1 applic topical TID #22 grams 08/11/24 10/16/24 Rx Allergy/AdvReac Type Severity Reaction Status Date / Time latex Allergy Mild Hives Verified 10/16/24 13:00 adhesive tape Allergy other Verified 10/16/24 13:00 amoxicillin trihydrate (From AdvReac Diarrhea Verified 10/16/24 13:00 Augmentin) potassium clavulanate (From AdvReac Diarrhea Verified 10/16/24 13:00 Augmentin) Family History Mother Renal disease Obesity Father Hemochromatosis Brother Hemochromatosis Hypertension Colon cancer Obesity Surgical History H/O cataract extraction H/O tubal ligation H/O: hysterectomy History of appendectomy Social History Smoking Status: Never smoker alcohol intake: current details: socially substance use type: does not use additional social history: pt denies vaping, denies edibles, denies marijuana use takes baby aspirin daily denies ibuprofen use ROS ROS ED Constitutional Constitutional ED: Denies chills or fever(s) ENT ENT ED: Denies rhinorrhea or sore throat Cardiovascular Cardiovascular: Reports as per HPI and chest pain; Denies palpitations Respiratory/Chest Respiratory/Chest: Reports dyspnea on exertion; Denies cough or dyspnea Gastrointestinal Gastrointestinal: Denies abdominal pain, nausea or vomiting Musculoskeletal Musculoskeletal: Denies arthralgias or myalgias Integumentary Reports rash Neurologic Neurologic: Denies weakness Psychiatric Psychiatric: Denies anxiety Hematologic/Lymphatic Hematologic/Lymphatic: Denies easy bleeding or easy bruising EXAM Physical Exam Const Vital Signs: 10/16/24 09:55 10/16/24 10:05 10/16/24 11:06 Temperature 97.6 F L Temperature Source Temporal Pulse Rate 20 L 83 Respiratory Rate 16 16 Blood Pressure 148/78 H 124/60 H Blood Pressure Mean 101 81 Pulse Ox 97 100 100 Oxygen Delivery Method Room Air Room Air Room Air 10/16/24 12:20 10/16/24 13:00 10/16/24 14:00 Temperature Temperature Source Pulse Rate 69 89 71 Respiratory Rate 16 14 20 H Blood Pressure 124/60 H 117/65 126/70 H Blood Pressure Mean 81 82 88 Pulse Ox 100 97 99 Oxygen Delivery Method Room Air Room Air Room Air 10/16/24 14:40 Temperature 97.9 F Temperature Source Pulse Rate 70 Respiratory Rate 16 Blood Pressure 141/72 H Blood Pressure Mean 95 Pulse Ox 99 Oxygen Delivery Method Positive well nourished and well developed General Appearance ED: well developed and NAD HEENT Reports moist mucous membranes HEENT Narrative: No oral lesions were appreciated Eyes PERRL and EOMs intact bilaterally Neck supple and no JVD Chest Wall inspection of chest normal and palpation of chest normal Resp normal respiratory effort and clear to auscultation bilaterally Cardio regular rate, regular rhythm and no murmurs GI normal to inspection, nondistended, normoactive bowel sounds, soft to palpation and non-tender Extremity normal to inspection Extremity Narrative: Reproducible pain with range of motion of the right shoulder. No short arc range of motion pain. No obvious deformity. General Extremety ED: Negative for edema General Extremity: Negative for edema Neuro oriented x3 Sensorium / Orientation: awake and alert Motor Exam: Negative for general weakness Psych mental status grossly normal Skin Skin Narrative: Scattered relatively diffuse nonraised erythematous target-like lesions on trunk and extremities. They are nontender. No bullae appreciated. Negative Nikolsky sign. No petechia. Heart Score History: Slightly/Non-Suspicious ECG: Nonspecific Repolarization Age: >/= 65 years Risk Factors: 1 or 2 Risk Factors Troponin: </= Normal Limit Score: 4 MDM MDM MDM Narrative Medical decision making narrative: Patient is a very pleasant 69-year-old female presenting for chest pain that occurred last night. She came in for further evaluation on it today she woke up with some slight chest discomfort. In addition she has had a rash for the past week. Patient overall is well-appearing. Vital signs are largely normal (only mildly elevated blood pressure). She is clear breath sounds and does not appear fluid overloaded. She is not have any leg swelling. Her chest pain is not pleuritic and I do not think this sounds like a PE and I do not think this needs workup for that. Her high sensitive troponin is normal and stable at 24, 23 and 22. EKG does not show any acute ischemic changes. Chest x-ray viewed by myself as well as radiology shows arthritic changes but no evidence of fluid overload or acute process. Patient is asymptomatic when emergency room comfortable discharge home. She was recently on a course of prednisone and I wonder if she could have some gastritis associated this. Counseled that she could take Tums or bnja-olc-txqlsjj antacids to help with the symptoms if they develop. I did speak with her PCP about arranging outpatient follow-up for her chest pain and outpatient testing. He is agreeable. Patient's rash is consistent with erythema multiforme minor. She does not have any oral involvement/mucosal involvement or findings consistent with Hedrick-Karthik syndrome. I do not think she requires emergent dermatology evaluation and can continue to follow-up outpatient with dermatology. I do not think she requires further steroids at this time. Patient is agreeable this plan of care. Lab Data Attestation: I reviewed the patient's lab results. Labs: Laboratory Results - last 24 hr 10/16/24 10/16/24 10/16/24 10:21 12:04 14:30 WBC 11.0 RBC 4.86 Hgb 13.6 Hct 42.3 MCV 87.0 MCH 28.0 MCHC 32.2 RDW Std Deviation 47.1 H RDW Coeff of Amairani 14.5 Plt Count 355 MPV 9.9 Immature Gran % (Auto) 3.600 H Neut % (Auto) 80.1 H Lymph % (Auto) 9.6 L [place] % (Auto) 4.7 Eos % (Auto) 1.5 Baso % (Auto) 0.5 Absolute Neuts (auto) 8.8 H Absolute Lymphs (auto) 1.05 Nucleated RBC % 0 Sodium 139 Potassium 3.9 Chloride 104 Carbon Dioxide 24.5 Anion Gap 11 BUN 26 H Creatinine 0.92 Estim Creat Clear Calc 67.22 Est GFR (MDRD) Non-Af 67 BUN/Creatinine Ratio 27.8 H Glucose 149 H Calcium 9.3 Troponin T High Sens 24 H Troponin T Hi Sens 2 Hr 23 H Troponin T Hi Sens 4Hr 22 H Radiography Diagnostic Testing: Clinical Impression(s) from Imaging Studies Chest X-Ray 10/16/24 10:05 IMPRESSION: No evidence of pulmonary edema. Lungs appear clear of acute disease. No pleural effusion or pneumothorax is seen. The cardiomediastinal silhouette is stable, without evidence of cardiomegaly. Mild thoracic spine degenerative changes are seen, along with extensive DISH. Bilateral acromioclavicular joint degenerative changes are noted, [id number]-mpai-left. No acute osseous change is seen. Reading Location: [address] Rhythm Strip Rhythm Strip: Sinus Rhythm Rate: 92 Ectopy: None EKG Initial EKG: Attestation: I personally reviewed and interpreted this EKG as follows: Interpretation: Sinus Rhythm Comments: Normal sinus rhythm at a rate of 90 bpm Normal axis Normal intervals Normal ST segments Prior EKG tracings: not available for review Prior: No Prior Management Discussion w/another healthcare provider: PCP Discharge Plan Triage Chief Complaint: Chest Pain Other Complaint: Rash ED Provider: Grace Mitchell Dx/Rx/DC Orders Clinical Impression: Chest pain, Erythema multiforme minor Instructions: ED Chest Pain, Uncertain Cause, ED Erythema Multiforme Prescriptions: No Action naproxen 500 mg tablet 500 mg PO QDAY PRN (Reason: muscle pain) levothyroxine 100 mcg tablet 100 mcg PO QDAY ibandronate 150 mg tablet 150 mg PO QMONTH metoprolol succinate 50 mg tablet extended release 24 hr 50 mg PO QDAY mupirocin 2 % ointment 1 applic topical TID Qty: 22 0RF oxybutynin chloride [Ditropan XL] 15 MG tablet extended release 24hr 15 mg PO DAILY lisinopril-hydrochlorothiazide [Zestoretic] 1 EACH tablet 1 ea PO BID calcium carbonate 600 MG tablet 600 mg PO DAILY Centrum Silver Women 1 EACH tablet 1 ea PO DAILY aspirin 81 MG tablet,chewable 81 mg PO DAILY@0800 Primary Care Provider: Eddy Lira Referrals: Eddy Lira MD [Primary Care Provider] - Print Language: [place]ican Disposition Disposition: Home, Self Care Discharge Date/Time: 10/16/24 14:42
[2024-10-16 13:47] LABS: Troponin T High Sens 2 HR 23 ng/L (<=14)
[2024-10-16 15:54] LABS: Troponin T High Sens 4 HR 22 ng/L (<=14)
== END 2024-10-16 14:42 | disposition home or self-care (01) ==
PROVIDERS: Emergency Provider Emergency Medicine; PCP Family Medicine; Visit Provider Emergency Medicine
DX: R07.9 Chest pain, unspecified (principal); D86.3 Sarcoidosis of skin; R11.0 Nausea; G89.29 Other chronic pain; I10 Essential (primary) hypertension; R21 Rash and other nonspecific skin eruption; L51.9 Erythema multiforme, unspecified; M19.011 Primary osteoarthritis, right shoulder; M19.012 Primary osteoarthritis, left shoulder; E03.9 Hypothyroidism, unspecified; Z79.82 Long term (current) use of aspirin; Z79.890 Hormone replacement therapy; Z79.899 Other long term (current) drug therapy
CPT/HCPCS: 71046; 80048; 84484; 85025; 93005; 99284; A4216

== ENCOUNTER → 2024-12-15 | Outpatient (CLI) | payer MEDICARE, SELFPAY | END | disposition home or self-care (01) | LOC: LABSPEC 12-17 07:39 | PROVIDERS: PCP Family Medicine; Visit Provider Nurse Practitioner Family | DX: S61.009A Unspecified open wound of unspecified thumb without damage to nail, initial encounter (principal); X58.XXXA Exposure to other specified factors, initial encounter | CPT/HCPCS: 87070; 87077; 87186; 87205 ==

== ENCOUNTER → 2025-01-02 | Outpatient (CLI) | payer MEDICARE, SELFPAY ==
--- NOTE | 2025-01-02 13:07 | VDLE_ITS ---
Reason For Study Reason For Study: RLE SWelling RIGHT LEFT GSV is normal. FV is compressible, spontaneous, phasic, competent CFV is compressible, spontaneous, phasic, competent and demonstrates normal augmentation. and demonstrates normal augmentation. FV is compressible, spontaneous, phasic, competent and demonstrates normal augmentation. POP V is compressible, spontaneous, phasic, competent and demonstrates normal augmentation. T/P Trunk is compressible. PTV is compressible. RT PerV is compressible. Procedure This is a venous duplex using B-mode, color flow and spectral Doppler. Exam performed in department. The exam was diagnostic. A preliminary report was called and/or faxed to Dr. Lira's office. VL/Venous Duplex US, Unilateral Interpretation Summary Deep veins of the right lower extremity are patent and compressible segmentally . There is no evidence of right lower extremity deep vein thrombosis. The right great saphenous vein appears patent a nd compressible segmentally. Ordering Physician: Eddy Lira Referring Physician: Eddy Lira Performed By: Errol Villeda RVT
== END | disposition home or self-care (01) ==
LOC: CVS 13:03
PROVIDERS: PCP Family Medicine; Referring Provider Family Medicine; Visit Provider Family Medicine
DX: M79.661 Pain in right lower leg (principal); M79.89 Other specified soft tissue disorders
CPT/HCPCS: 93971

== ENCOUNTER 2025-01-15 14:00 | Outpatient (RCR) | payer MEDICARE, SELFPAY ==
--- NOTE | 2024-10-03 18:04 | HP.PTEVAL ---
Patient's Visit Information Visit Information Visit Information: LILLY LIRA is a 69 year old F referred to Physical Therapy by Dr. Eddy Lira MD with a diagnosis of Urinary incontinence. Date of Evaluation: 10/03/24 Physical Therapist: Jonelle Garcia Visit Plan Frequency: 1x/Week Duration: 3 Months Plan: Lilly would benefit from skilled PT intervention to address her incontinence. She has pelvic floor tightness likely as a result of her radiation treatments. She also has pelvic floor weakness which we will address in our sessions with education in a strengthening program for home. Continue 1 x week. Next visit continue pelvic floor manual therapy to address mild, moderate tightness bilaterally (worse on right side). Radiation treatments and uterine cancer history so would likely benefit from perineal body work as well. Add week 2 next visit. Evaluate breathing mechanics next visit. Will also look at lumbar /pelvic alignment Subjective Subjective: She is coming in for urinary incontinence. Uterine cancer in 2020. Total hysterectomy in June 2020 or (?) and internal radiation (5-10 sessions). She states her incontinence got bad after cancer diagnosis. She had mild incontinence before cancer diagnosis with a cough or sneeze. She wears a pad every day. She leaks sometimes with getting up out of a chair. Lifting something heavy can cause leaking. Sneezing, coughing, laughing too much. Leaking more with activity. No other symptoms. No pelvic pain. She is and her in 2009. She has 3 kids (set of twins). All vaginal deliveries. Objective Objective: POPDI-6 0, CRAD-8 0, ABY-6 10 Mild, moderate pelvic floor tightness layer 2-3 bilaterally but patient reports more tenderness right side layer 2, no evidence of cystocele but hard to evaluate as no speculum, Moderate leaking with her raising her legs up onto the table, LAYCOCK 2+/8/2/2 Hard to relax between contractions Goals Goal 1:: Lilly will be able to cough or sneeze without leaking. Goal Time Frame: 8-12 Weeks Goal 2:: Lilly will be able to laugh without leaking. Goal Time Frame: 8-12 Weeks Goal 3:: Lilly will be able to transfer sit to stand without leaking. Goal Time Frame: 6-8 Weeks Goal 4:: Lilly will be able to lift something of moderate weight without leaking. Goal Time Frame: 8-12 Weeks Rehabilitation Potential Physical Therapy Diagnosis: Stress incontinence N39.3 Rehabilitation Potential: Good Anticipated Interventions Patient/Client Instruction: Educate patient on: Condition and Plan of Care For the Purpose of:: To improve muscle performance and motor function, To increase tolerance to activity/condition/position, To improve performance and independence with ADL's, To improve health and function and To improve self management Therapeutic Exercise to Include: Strength training and Relaxation training For the Purpose of:: To improve muscle performance and motor function, To improve health and function and To improve self management Manual Therapy Techniques to Include: Trigger point massage and Soft tissue mobilization For the Purpose of:: To improve muscle performance and motor function and To improve health and function Text: Thank you for the opportunity to evaluate your patient. For Medicare and Medicare HMO plans, please review the plan of care and approve it. It will need to be FAXED BACK to us at [phone] for Medicare purposes. For Medicare only, by signing this I certify the plan of care. Please let me know if there are questions or concerns regarding this plan of care. Physician Signature: Date:
--- NOTE | 2025-01-15 14:40 | HP.PTDCSUM ---
Discharge Summary D/C summary: It has been my pleasure to treat LILLY LIRA referred by Dr. Eddy Lira MD, with the diagnosis of Urinary incontinence for a total of 9 visit(s). Discharge Date: 01/15/25 Please see the following information for a summary of their discharge status. Subjective Subjective: Prior to the med change with adding the water pill she was feeling 50% improved. A little more control and less leaking (15-20% improved overall). There are some days no matter what she does, she has leaking. She usually uses 1 pad a day. She wears an adult diaper before bed and that hasn't changed but sometimes she doesn't need it and wakes up dry. Pain low back: Pain Intensity (Out of 10): 4 Overall Improvement % Improvement: 20 Objective Objective/Function: Lilly showed mild progress in PT reporting 15-20% improvement overall in her leaking and control. She had nice progress in her pelvic floor contraction ability/strength and much less overall pelvic floor tightness. She is ready to continue the pelvic floor strengthening on her own. Recommending she follow up with her doctor if incontinence continues to be bothersome despite compliance with her exercises to determine other possible treatment options. Goals Goal 1:: Lilly will be able to cough or sneeze without leaking. Goal Progress: 20% Goal 2:: Lilly will be able to laugh without leaking. Goal Progress: Goal Met Goal 3:: Lilly will be able to transfer sit to stand without leaking. Goal Progress: 20% improved. Goal 4:: Lilly will be able to lift something of moderate weight without leaking. Goal Progress: 15% Plan Plan: D/C from PT and closing her chart. D/C Information Discharge Comments: Discharging patient from PT. She plans to continue the exercises on her own. d/c sentence: If there are questions or concerns regarding this patient's physical therapy, please feel free to call me at [phone]. Thank you for the referral of this patient. Sincerely, Jonelle Garcia Balance/Gait/Functional tests Improvement % Improvement: 20
== END 2025-01-15 19:00 | disposition home or self-care (01) ==
LOC: PT 14:00
PROVIDERS: PCP Family Medicine; Referring Provider Family Medicine; Visit Provider Family Medicine
DX: N39.41 Urge incontinence (principal); N94.9 Unspecified condition associated with female genital organs and menstrual cycle
CPT/HCPCS: 97110; 97112; 97140; 97161; 97530